=== PATIENT | male | born 1980 | race Hispanic/Latino ===

== ENCOUNTER 2018-08-16 10:49 | Emergency (ER) | payer BC ==
--- NOTE | 2018-08-16 12:47 | RAD REPORT ---
EXAM DESCRIPTION: RAD - Chest Pa And Lat (2 Views) - 08/16/2018 12:36 pm CLINICAL HISTORY: Congestion;Cough Chest pain. COMPARISON: No comparisons FINDINGS: The lungs are clear. The heart is normal in size. No displaced fractures. IMPRESSION: No acute or concerning finding suspected.
[2018-08-16 12:48] LABS: Absolute Lymphocytes (CBC) 2.9 K/uL (0.7-4.9); Absolute Monocytes 0.6 K/uL (0.1-1.3); Absolute Neutrophil 9.8 K/uL (1.8-8.0); Basophils % 0.7 % (0-1.3); Hematocrit 44.3 % (39.6-49.0); MPV 8.1 fL (7.6-11.3); Monocytes % 4.7 % (3.3-12.3); RBC Red Blood Cell Count 5.52 M/uL (4.33-5.43)
[2018-08-16 13:07] LABS: BUN Blood Urea Nitrogen 11 mg/dL (7-18); Bicarbonate 27 mmol/L (21-32); Glucose Level 104 mg/dL (74-106); Potassium 3.8 mmol/L (3.5-5.1); Sodium Level 138 mmol/L (136-145); Troponin (Emerg Dept Use Only) < 0.02 ng/mL (0.0-0.045)
--- NOTE | 2018-08-16 13:33 | ER ---
Nurse's Notes [facility] Name: Derek Silva Jr Age: 38 yrs Sex: Male : 1980 Arrival Date: 08/16/2018 Time: 10:53 Bed 19 Private MD: Diagnosis: Dyspnea;Acute upper respiratory infection, unspecified Presentation: 08/16 10:54 Presenting complaint: Patient states: every time i walk up the stairs i could hardly hj breathe, i had flu symptoms and took Thera flu a week ago, now i still have the cough and coughing out green phlegm; denies fever and chills;. Transition of care: patient was not received from another setting of care. Onset of symptoms was August 16, 2018. Risk Assessment: Do you want to hurt yourself or someone else? Patient reports no desire to harm self or others. Initial Sepsis Screen: Does the patient meet any 2 criteria? No. Patient's initial sepsis screen is negative. Does the patient have a suspected source of infection? No. Patient's initial sepsis screen is negative. Care prior to arrival: None. 10:54 Method Of Arrival: Ambulatory 10:54 Acuity: BEAU 3 hj Triage Assessment: 10:57 General: Appears in no apparent distress. uncomfortable, Behavior is calm, cooperative, hj appropriate for age. Respiratory: Reports shortness of breath Onset: The symptoms/episode began/occurred the patient has mild shortness of breath. Historical: - Allergies: 10:57 No Known Allergies; hj - Home Meds: 10:57 None [Active]; hj - PMHx: 10:57 None; hj - PSHx: 10:57 Cholecystectomy; hj - Immunization history:: Adult Immunizations up to date. - Social history:: Smoking status: Patient/guardian denies using tobacco, Patient uses alcohol, but reports only rare drinking. - Ebola Screening: : Patient negative for fever greater than or equal to 101.5 degrees Fahrenheit, and additional compatible Ebola Virus Disease symptoms Patient denies exposure to infectious person Patient denies travel to an Ebola-affected area in the 21 days before illness onset. Screenin:57 Abuse screen: Denies threats or abuse. Denies injuries from another. Nutritional hj screening: No deficits noted. Tuberculosis screening: No symptoms or risk factors identified. Fall Risk None identified. Assessment: 10:57 Pain: Denies pain. Cardiovascular: Rhythm is. Respiratory: Airway is patent Respiratory hj effort is even, unlabored, Respiratory pattern is regular, symmetrical, 11:45 Reassessment: Patient appears in no apparent distress at this time. Patient and/or hb family updated on plan of care and expected duration. Pain level reassessed. Patient is alert, oriented x 3, equal unlabored respirations, skin warm/dry/pink. Patient denies pain at this time. 12:45 Reassessment: Patient appears in no apparent distress at this time. No changes from previously documented assessment. Patient and/or family updated on plan of care and expected duration. Pain level reassessed. Patient is alert, oriented x 3, equal unlabored respirations, skin warm/dry/pink. 13:45 Reassessment: Patient appears in no apparent distress at this time. No changes from hb previously documented assessment. Patient and/or family updated on plan of care and expected duration. Pain level reassessed. Patient is alert, oriented x 3, equal unlabored respirations, skin warm/dry/pink. Vital Signs: 10:58 BP 123 / 75; Pulse 110; Resp 18; Temp 98.6(O); Pulse Ox 100% on R/A; Weight 181.44 kg; Height 5 ft. 11 in. (180.34 cm); Pain 0/10; 12:00 BP 126 / 74; Pulse 92; Resp 16; Pulse Ox 100% on R/A; Pain 0/10; hb 13:00 BP 130 / 76; Pulse 88; Resp 16; Pulse Ox 100% on R/A; Pain 0/10; hb 10:58 Body Mass Index 55.79 (181.44 kg, 180.34 cm) ED Course: 10:53 Patient arrived in ED. rg4 10:56 Triage completed. hj 10:57 Noreen Higgins FNP-C is [facility]. kb 10:57 Jose Dempsey MD is Attending Physician. kb 10:58 Arm band placed on right wrist. hj 10:58 Patient has correct armband on for positive identification. Bed in low position. Call light in reach. Side rails up X 1. Adult w/ patient. 11:43 Saida Tompkins, PHYLLIS is Primary Nurse. hb 12:28 Flu Sent. hb 12:29 Inserted saline lock: 22 gauge in right forearm, using aseptic technique. hb 12:36 Chest Pa And Lat (2 Views) XRAY In Process Unspecified. EDMS 14:02 No provider procedures requiring assistance completed. IV discontinued, intact, hb bleeding controlled, No redness/swelling at site. Pressure dressing applied. Administered Medications: No medications were administered Outcome: 13:32 Discharge ordered by . jeff 14:02 Discharged to home ambulatory, with significant other. hb 14:02 Condition: stable 14:02 Discharge instructions given to patient, Instructed on discharge instructions, follow up and referral plans. medication usage, Demonstrated understanding of instructions, follow-up care, medications. 14:05 Patient left the ED. hb Signatures: Dispatcher [employer] EDMS Noreen Higgins, GAVIN-C MAIL DELIVERY SUPERVISOR-Amrit Wood, RN RN Saida Metz RN RN Linda Wade rg4 Corrections: (The following items were deleted from the chart) 10:59 10:54 Acuity: BEAU 4 hj hj 11:01 10:58 Pulse 110bpm; Resp 18bpm; Pulse Ox 100% RA; Temp 98.6F Oral; 181.44 kg; Height 5 hj ft. 11 in.; BMI: 55.7; Pain 0/10; hj
--- NOTE | 2018-08-16 13:33 | EDPHYS ---
Physician Documentation [facility] Name: Derek Silva Jr Age: 38 yrs Sex: Male : 1980 Arrival Date: 08/16/2018 Time: 10:53 Bed 19 Private MD: ED Physician Jose Dempsey HPI: 08/16 13:25 This 38 yrs old Male presents to ER via Ambulatory with complaints of kb Breathing Difficulty. 13:25 The patient has shortness of breath at rest, with light activity. Onset: The kb symptoms/episode began/occurred 2 week(s) ago. Duration: The symptoms are continuous. The patient's shortness of breath is aggravated by exertion. Associated signs and symptoms: Pertinent positives: chest pain. Severity of symptoms: At their worst the symptoms were mild moderate in the emergency department the symptoms have improved. The patient has not experienced similar symptoms in the past. The patient has not recently seen a physician. Pt states he went to [facility] on 07/26. Climbed a lot of stairs to the top a bridge [place] 07[place]31 and got short of breath. Has been having intermittent shortness of breath since then. States he got the flu when he came back and has had cough and congestion.. Historical: - Allergies: 10:57 No Known Allergies; hj - Home Meds: 10:57 None [Active]; hj - PMHx: 10:57 None; hj - PSHx: 10:57 Cholecystectomy; hj - Immunization history:: Adult Immunizations up to date. - Social history:: Smoking status: Patient/guardian denies using tobacco, Patient uses alcohol, but reports only rare drinking. - Ebola Screening: : Patient negative for fever greater than or equal to 101.5 degrees Fahrenheit, and additional compatible Ebola Virus Disease symptoms Patient denies exposure to infectious person Patient denies travel to an Ebola-affected area in the 21 days before illness onset. ROS: 13:23 Constitutional: Negative for fever, chills, and weight loss, Neck: Negative for injury, kb pain, and swelling, Abdomen/GI: Negative for abdominal pain, nausea, vomiting, diarrhea, and constipation, Back: Negative for injury and pain, : Negative for injury, bleeding, discharge, and swelling, MS/Extremity: Negative for injury and deformity, Skin: Negative for injury, rash, and discoloration, Neuro: Negative for headache, weakness, numbness, tingling, and seizure. 13:23 ENT: Positive for sinus congestion. 13:23 Cardiovascular: Positive for chest pain, Negative for edema, orthopnea, palpitations, paroxysmal nocturnal dyspnea. 13:23 Respiratory: Positive for cough, shortness of breath, Negative for dyspnea on exertion, hemoptysis, orthopnea, pleurisy, sputum production, wheezing. Exam: 13:24 Constitutional: This is a well developed, well nourished patient who is awake, alert, kb and in no acute distress. Head/Face: Normocephalic, atraumatic. ENT: Nares patent. No nasal discharge, no septal abnormalities noted. Tympanic membranes are normal and external auditory canals are clear. Oropharynx with no redness, swelling, or masses, exudates, or evidence of obstruction, uvula midline. Mucous membranes moist. Neck: Trachea midline, no thyromegaly or masses palpated, and no cervical lymphadenopathy. Supple, full range of motion without nuchal rigidity, or vertebral point tenderness. No Meningismus. Chest/axilla: Normal chest wall appearance and motion. Nontender with no deformity. No lesions are appreciated. Cardiovascular: Regular rate and rhythm with a normal S1 and S2. No gallops, murmurs, or rubs. Normal PMI, no JVD. No pulse deficits. Respiratory: Lungs have equal breath sounds bilaterally, clear to auscultation and percussion. No rales, rhonchi or wheezes noted. No increased work of breathing, no retractions or nasal flaring. Abdomen/GI: Soft, non-tender, with normal bowel sounds. No distension or tympany. No guarding or rebound. No evidence of tenderness throughout. Skin: Warm, dry with normal turgor. Normal color with no rashes, no lesions, and no evidence of cellulitis. MS/ Extremity: Pulses equal, no cyanosis. Neurovascular intact. Full, normal range of motion. Neuro: Awake and alert, GCS 15, oriented to person, place, time, and situation. Cranial nerves II-XII grossly intact. Motor strength 5/5 in all extremities. Sensory grossly intact. Cerebellar exam normal. Normal gait. Vital Signs: 10:58 BP 123 / 75; Pulse 110; Resp 18; Temp 98.6(O); Pulse Ox 100% on R/A; Weight 181.44 kg; hj Height 5 ft. 11 in. (180.34 cm); Pain 0/10; 12:00 BP 126 / 74; Pulse 92; Resp 16; Pulse Ox 100% on R/A; Pain 0/10; hb 13:00 BP 130 / 76; Pulse 88; Resp 16; Pulse Ox 100% on R/A; Pain 0/10; hb 10:58 Body Mass Index 55.79 (181.44 kg, 180.34 cm) MDM: 11:16 Patient medically screened. kb 13:24 Data reviewed: vital signs, nurses notes. Data interpreted: Pulse oximetry: on room air kb is 100 %. Interpretation: normal. Counseling: I had a detailed discussion with the patient and/or guardian regarding: the historical points, exam findings, and any diagnostic results supporting the discharge/admit diagnosis, lab results, radiology results, the need for outpatient follow up, a family practitioner, to return to the emergency department if symptoms worsen or persist or if there are any questions or concerns that arise at home. 08/16 12:08 Order name: Troponin (emerg Dept Use Only); Complete Time: 13:14 kb 08/16 12:08 Order name: D-Dimer; Complete Time: 13:14 kb 08/16 10:57 Order name: Chest Pa And Lat (2 Views) XRAY; Complete Time: 12:58 kb 08/16 12:08 Order name: CBC with Diff; Complete Time: 12:58 kb 08/16 12:08 Order name: Basic Metabolic Panel; Complete Time: 13:14 kb 08/16 12:08 Order name: Flu; Complete Time: 13:14 kb 08/16 12:08 Order name: EKG; Complete Time: 12:09 kb 08/16 12:08 Order name: EKG - Nurse/Tech; Complete Time: 14:02 kb 08/16 12:08 Order name: IV Start; Complete Time: 12:28 kb Administered Medications: No medications were administered Disposition: 17:57 Co-signature as Attending Physician, Jose Dempsey MD Available for consultation at ps1 all times. . Disposition: 08/16/18 13:32 Discharged to Home. Impression: Dyspnea, Acute upper respiratory infection, unspecified. - Condition is Stable. - Discharge Instructions: Upper Respiratory Infection, Adult, [id number], Viral Respiratory Infection, [id number]. - Medication Reconciliation Form, Thank You Letter, Antibiotic Education, Prescription Opioid Use, Work release form form. - Follow up: Emergency Department; When: As needed; Reason: Worsening of condition. Follow up: Private Physician; When: 2 - 3 days; Reason: Recheck today's complaints, Continuance of care, Re-evaluation by your physician. Signatures: Dispatcher [employer] EDMD Noreen Higgins, GAVIN-C MANAGER PERFORMANCE IMPROVEMENT-Amrit Wood, PHYLLIS RN hj Saida Tompkins RN RN hb Jose Dempsey MD MD ps1 Corrections: (The following items were deleted from the chart) 14:05 13:32 08/16/2018 13:32 Discharged to Home. Impression: Dyspnea; Acute upper respiratory hb infection, unspecified. Condition is Stable. Forms are Medication Reconciliation Form, Thank You Letter, Antibiotic Education, Prescription Opioid Use. Follow up: Emergency Department; When: As needed; Reason: Worsening of condition. Follow up: Private Physician; When: 2 - 3 days; Reason: Recheck today's complaints, Continuance of care, Re-evaluation by your physician. kb
--- NOTE | 2018-08-16 15:07 | EKG ---
Test Date: 2018-08-16 Test Time: 12:39:32 Assistant Golf Professional: NOAH MEASUREMENT RESULTS: Intervals: Rate: 96 VA: 164 QRSD: 102 QT: 334 QTc: 421 [place]ron: P: 39 VA: 164 QRS: -42 T: 32 INTERPRETIVE STATEMENTS: Normal sinus rhythm Left axis deviation Cannot rule out Anterior infarct, age undetermined Abnormal ECG No previous ECG available for comparison Electronically Signed On 08-16-18 15:06:03 PRODUCT DEVELOPMENT by Reynold Duke
== END 2018-08-16 14:05 | disposition home or self-care (01) ==
LOC: ER 10:49
DX: J06.9 Acute upper respiratory infection, unspecified (principal)
CPT/HCPCS: 36415; 71046; 80048; 84484; 85025; 85379; 87804; 93005; 99283